=== PATIENT | female | born 1985 | race Caucasian/White ===

== ENCOUNTER 2020-07-26 15:18 | Emergency (ER) | payer OTHER ==
[~2020-07-26] VITALS: Ht 177.8 cm; Wt 68.0 kg
[2020-07-26 15:25] VITALS: Ht 177.8 cm; Wt 68.0 kg
[2020-07-26 17:46] VITALS: BP 155/73
== END 2020-07-26 17:46 | disposition home or self-care (01) ==
LOC: ED 15:18
DX: T78.1XXA Other adverse food reactions, not elsewhere classified, initial encounter (principal); R00.0 Tachycardia, unspecified; Z91.013 Allergy to seafood; X58.XXXA Exposure to other specified factors, initial encounter
CPT/HCPCS: J2060; J2930; J3490; J7030